=== PATIENT | female | born 1985 | race Caucasian/White ===

== ENCOUNTER 2018-02-15 21:20 | Inpatient (IN) | payer OTHER ==
[2018-02-15] VITALS (14 sets, daily range): BP systolic 94–124; BP diastolic 48–76; PULSE 75–93; RESP 18; O2SAT 100
[~2018-02-15] VITALS: Ht 175.3 cm; Wt 106.1 kg
[~2018-02-15 21:20] MED LIST: IBUP600 PO; PRENCAP10 PO
[2018-02-15] MEDS: LACTATED RINGER'S 1000 ML IV SCH (22:00)
[2018-02-15] MEDS ORDERED: PRENTAB7 (22:10)
[2018-02-15] MEDS ORDERED: NS 1000 ML IV PRN (22:30)
[2018-02-15] MEDS ORDERED: CITRIC ACID-SODIUM CITRATE LIQ 30 ML UDC PO SCH (22:30)
[2018-02-15] MEDS ORDERED: ONDANSETRON HCL 4 MG/2 ML VIAL IV PUSH PRN (22:30)
[2018-02-15] MEDS ORDERED: LACTATED RINGER'S 1000 ML BOLUS IV PRN (22:30)
[2018-02-15] MEDS ORDERED: OXYTOCIN 30 UNITS/NS 500ML PREMIX IV PRN (22:30)
[2018-02-15] MEDS ORDERED: LIDOCAINE HCL 1% 50 ML VIAL INFIL PRN (22:30)
[2018-02-15] MEDS ORDERED: LIDOCAINE HCL 1% 50 ML VIAL I-DERMAL PRN (22:30)
[2018-02-15] MEDS ORDERED: NS 500 ML BOLUS IV PRN (22:30)
[2018-02-15] MEDS ORDERED: OXYTOCIN 30 UNITS 500ML PREMIX IV ONE (22:30)
[2018-02-15] MEDS ORDERED: MINERAL OIL 10 ML VIAL TOPICAL PRN (22:30)
[2018-02-15 22:52] LABS: AUTOMATED NEUTROPHIL # 6.2 TH/MM3 (1.8-7.7); BASOPHIL % 0.3 % (0.0-2.0); EOSINOPHIL # 0.1 TH/MM3 (0-0.4); EOSINOPHIL % 1.1 % (0.0-4.0); HEMOGLOBIN 10.5 GM/DL (11.6-15.3); LYMPH % 18.5 % (9.0-44.0); LYMPHOCYTE # 1.6 TH/MM3 (1.0-4.8); MEAN CELL VOLUME 88.6 FL (80.0-100.0); MEAN CORPUSCULAR HGB CONC 33.8 % (32.0-36.0); MEAN PLATELET VOLUME 7.6 FL (7.0-11.0); MONO % 10.5 % (0.0-8.0); MONOCYTE # 0.9 TH/MM3 (0-0.9); NEUT % 69.6 % (16.0-70.0); PLATELET COUNT 254 TH/MM3 (150-450); RED CELL DISTRIBUTION WIDTH 14.3 % (11.6-17.2); WHITE BLOOD COUNT 8.9 TH/MM3 (4.0-11.0)
[2018-02-15] MEDS ORDERED: fentaNYL 2MCG-BUPIV 0.125% INJ 100 ML ONE (23:07)
[2018-02-15] MEDS ORDERED: LIDOCAINE 2%/EPINEPHrine PF 1:200,000 20ML SDV ONE (23:34)
[2018-02-16] VITALS (107 sets, daily range): BP systolic 77–123; BP diastolic 36–71; PULSE 66–91; RESP 18; TEMP 97.5–98.3; O2SAT 94–100
[2018-02-16] MEDS ORDERED: ePHEDrine/NS 25 MG/5 ML SYRINGE IV PUSH PRN (00:15)
[2018-02-16] MEDS ORDERED: DO NOT ADMINISTER ANTICOAGULANTS PRN (00:15)
[2018-02-16] MEDS ORDERED: NO SYSTEM NARCOTICS PRN (00:15)
[2018-02-16 00:30] LABS: BILIRUBIN, URINE NEG (NEG); BLOOD, URINE NEG (NEG); GLUCOSE,URINE NEG (NEG); KETONE, URINE NEG (NEG); MUCUS URINE FEW /lpf (OCC); NITRITE,URINE NEG (NEG); PH, URINE 6.5 (5.0-8.5); SQUAMOUS EPITHELIAL CELL URINE <1 /hpf (0-5); URINE COLOR LIGHT-YELLOW (YELLW/STRAW); URINE LEUKOCYTE ESTERASE NEG (NEG)
[2018-02-16] MEDS: fentaNYL 2MCG-BUPIV 0.125% 100 ML EPIDURAL PRN ×2 (00:30→06:10)
[2018-02-16] MEDS: LACTATED RINGER'S 1000 ML IV SCH ×2 (01:40→01:41)
[2018-02-16] MEDS ORDERED: fentaNYL 2MCG-BUPIV 0.125% INJ 100 ML ONE (05:57)
[2018-02-16] MEDS ORDERED: LIDOCAINE HCL 1% PF 30 ML VIAL ONE (09:24)
[2018-02-16] MEDS ORDERED: DOCUSATE SODIUM 50 MG/SENNA 8.6 MG TAB PO PRN (09:45)
[2018-02-16] MEDS ORDERED: SODIUM CHLORIDE 0.9% FLUSH 10 ML FLUSH IV FLUSH PRN (09:45)
[2018-02-16] MEDS ORDERED: ACETAMINOPHEN 325 MG TAB PO PRN (09:45)
[2018-02-16] MEDS ORDERED: ALUMINUM/MAGNESIUM/SIMETH 30 ML CUP PO PRN (09:45)
[2018-02-16] MEDS ORDERED: OXYTOCIN 10 UNIT/ML AMP XX PRN (09:45)
[2018-02-16] MEDS ORDERED: SODIUM CHLORIDE 0.9% FLUSH 10 ML FLUSH IV FLUSH SCH (09:45)
[2018-02-16] MEDS ORDERED: OXYTOCIN 30 UNITS-500ML PREMIX 500 ML IV SCH (09:45)
[2018-02-16] MEDS ORDERED: ONDANSETRON ODT 4 MG TAB PO PRN (09:45)
--- NOTE | 2018-02-16 09:47 | PD.OB.DELI ---
Gest age assessed date: February 15, 2018 Gest age assessed time: 20:00 Pt started active labor?: No Active labor start date: February 16, 2018 Active labor start time: 02:00 Medical induction of labor?: Yes Medical induction start date: February 15, 2018 Medical induction start time: 20:00 Artificial rupture of membrane: Yes Artificial ROM date: February 16, 2018 Artifical ROM time: 07:15 Anesthesia: Epidural Episiotomy: None Vaginal Delivery: Normal Presentation: Occiput anterior Nuchal Cord: None Delayed cord clamping (45 sec): Yes Shoulder Dystocia: Suprapubic pressure given, Manfred maneuver done Infant: Female Delivery date: February 16, 2018 Delivery time: 09:21 One Minute : 8 Five Minute : 9 Placenta: Spontaneous delivery, Intact, 3 vessel cord Laceration: Vaginal laceration, 2 deg Repair: Vicryl running Estimated blood loss: 200cc Willy Craft MD February 16, 2018 09:47
[2018-02-16] MEDS: WITCH HAZEL 50%/GLYCERIN 12.5% 40 PAD JAR TOPICAL PRN (11:55)
[2018-02-16] MEDS: BENZOCAINE 20% TOPICAL SPRAY 60 ML CAN TOPICAL PRN (11:55)
[2018-02-16] MEDS: IBUPROFEN 800 MG TAB PO PRN ×2 (15:04→23:02)
[2018-02-16] MEDS ORDERED: DIPHTH/TETANUS/ACEL PERTUSSIS (BOOSTER) 0.5 ML VIAL/PFS IM ONE (16:00)
[2018-02-16] MEDS ORDERED: MEASLES, MUMPS, RUBELLA VACCINE 0.5 ML VIAL SQ ONE (16:00)
--- NOTE | 2018-02-16 16:03 | HHI.DCPOC ---
Discharge Care Plan Diagnosis: (1) Normal vaginal delivery Your Health Problems Are: Vaginal delivery Report Symptoms to Your Doctor -Temperature above 100.5 degrees -Redness, of incision or excessive or foul smelling drainage -Unusual pain or calf pain -Increased vaginal bleeding -Painful or difficulty urinating -Feelings of extreme sadness or anxiety after 2 weeks Goals to Promote Your Health * To prevent worsening of your condition and complications * To maintain your health at the optimal level Directions to Meet Your Goals Take your medications as prescribed Follow your dietary instruction Follow activity as directed Ensure plenty of rest for recovery Drink fluids for hydration Keep your appointments as scheduled Take your immunizations and boosters as scheduled If your symptoms worsen call your PCP, if no PCP go to Urgent Care Center or Emergency Room Smoking is Dangerous to Your Health. Avoid second hand smoke Call the 24-hour crisis hotline for domestic abuse at Russell Kaur MD February 16, 2018 16:03
[2018-02-16] MEDS ORDERED: ZOLPIDEM TARTRATE 5 MG TAB PO PRN (21:00)
[2018-02-17] MEDS: IBUPROFEN 800 MG TAB PO PRN (06:41)
[2018-02-17] MEDS: WITCH HAZEL 50%/GLYCERIN 12.5% 40 PAD JAR TOPICAL PRN (09:32)
[2018-02-17] MEDS: BENZOCAINE 20% TOPICAL SPRAY 60 ML CAN TOPICAL PRN (09:32)
--- NOTE | 2018-02-17 09:49 | HHI.OB ---
Subjective Post Day: 1 Remarks doing well, VB < menses, pain controlled, desires d/c home today. Objective Vitals/I&O Vital Signs Date Time Temp Pulse Resp B/P (MAP) Pulse Ox O2 Delivery O2 Flow Rate FiO2 02/16/18 20:00 98.3 81 18 123/66 (85) 99 Objective Remarks GENERAL: Well-nourished, well-developed patient. CARDIOVASCULAR: Regular rate and rhythm without murmurs, gallops, or rubs. RESPIRATORY: Breath sounds equal bilaterally. No accessory muscle use. ABDOMEN/GI: Abdomen soft, non-tender. Fundus: Firm, non-tender at umbilicus. GENITOURINARY: Light to moderate bleeding. EXTREMITIES: No cyanosis or edema, non-tender, without signs of DVT. Medications and IVs Current Medications Medications (Trade) Dose Ordered Sig/Omari Route Start Time Stop Time Status Last Admin Lactated Ringer's 1,000 ml @ 125 mls/hr Q8H IV 02/15/18 22:30 02/15/18 22:00 Lactated Ringer's 1,000 ml @ 3,000 mls/hr BOLUS PRN IV 02/15/18 22:30 Sodium Chloride 500 ml @ 1,000 mls/hr BOLUS PRN IV 02/15/18 22:30 Sodium Chloride 1,000 ml @ 100 mls/hr Q10H PRN IV 02/15/18 22:30 (Bicitra Liq) 30 ml SALT OPERATOR PO 02/15/18 22:30 02/18/18 22:29 (Zofran Inj) 4 mg Q6H PRN IV PUSH 02/15/18 22:30 (fentaNYL INJ) 50 mcg Q1H PRN IV PUSH 02/15/18 22:30 (fentaNYL INJ) 100 mcg Q1H PRN IV PUSH 02/15/18 22:30 (Muri-Lube Oil) 10 ml UNSCH PRN TOPICAL 02/15/18 22:30 Oxytocin 500 ml @ 0 mls/hr TITRATE PRN IV 02/15/18 22:30 02/15/18 22:30 Fentanyl/ Bupivacaine HCl 100 ml @ 0 mls/hr TITRATE PRN EPIDURAL 02/16/18 00:15 02/16/18 06:10 (NS Flush) 2 ml BID IV FLUSH 02/16/18 09:45 (NS Flush) 2 ml UNSCH PRN IV FLUSH 02/16/18 09:45 (Tylenol) 650 mg Q4H PRN PO 02/16/18 09:45 (Motrin) 800 mg Q8H PRN PO 02/16/18 09:45 02/17/18 06:41 (Americaine 20% Top Spr) 1 spray Q4H PRN TOPICAL 02/16/18 09:45 02/17/18 09:32 (Tucks Pads) 1 applic QID PRN TOPICAL 02/16/18 09:45 02/17/18 09:32 (Noemi-Colace) 2 tab Q12H PRN PO 02/16/18 09:45 (Ambien) 5 mg HS PRN PO 02/16/18 21:00 (Mag-Al Plus Susp Liq) 15 ml Q8H PRN PO 02/16/18 09:45 (Zofran Odt) 4 mg Q6H PRN PO 02/16/18 09:45 Assessment/Plan Assessment and Plan 32 yo s/p at 39w6d 1. PPD #1: AF VSS, d/c home today, discussed precautions, expectations and follow up. - female . Russell Kaur MD February 17, 2018 09:49
[2018-02-17] MEDS ORDERED: IBUP-232 PO (09:50)
== END 2018-02-17 15:49 | disposition home or self-care (01) | DRG 775 ==
LOC: H2EB 21:20 → H1EA 02-16 12:12
PROVIDERS: ADMIT Obstetrics & Gynecology; ATTEND Obstetrics & Gynecology
PROC: 00HU33Z Insertion of Infusion Device into Spinal Canal, Percutaneous Approach (ICD-10-PCS; 2018-02-15)
PROC: 3E0R3BZ Introduction of Anesthetic Agent into Spinal Canal, Percutaneous Approach (ICD-10-PCS; 2018-02-15)
PROC: 10907ZC Drainage of Amniotic Fluid, Therapeutic from Products of Conception, Via Natural or Artificial Opening (ICD-10-PCS; 2018-02-15)
PROC: 3E033VJ Introduction of Other Hormone into Peripheral Vein, Percutaneous Approach (ICD-10-PCS; 2018-02-15)
PROC: 10E0XZZ Delivery of Products of Conception, External Approach (ICD-10-PCS; principal; 2018-02-16)
PROC: 0KQM0ZZ Repair Perineum Muscle, Open Approach (ICD-10-PCS; 2018-02-16)
DX: O66.0 Obstructed labor due to shoulder dystocia (principal); O70.1 Second degree perineal laceration during delivery; Z37.0 Single live birth; Z3A.39 39 weeks gestation of pregnancy; Z23 Encounter for immunization
CPT/HCPCS: 59025; 80307; 81001; 85025; 86900; 86901; G0481; J2590; J7120